=== PATIENT | male | born 1985 | race African-American/Black ===

== ENCOUNTER 2018-02-01 12:29 | Emergency (ER) | payer MEDICARE, MEDICAID ==
[2018-02-01] MEDS ORDERED: TETRACAINE HCL 0.5% OPH SOLN 2 ML OU ONE (13:10)
--- NOTE | 2018-02-01 13:11 | ER Document Report ---
ED Medical Screen (RME) - General Chief Complaint: Eye Problem Stated Complaint: EYE PAIN, BLURRED VISION, DIZZY Time Seen by Provider: 02/01/18 13:09 TRAVEL OUTSIDE OF THE [place] IN LAST 30 DAYS: No - HPI Notes: 02/01/18 13:10 Bilateral red eyes and pain - Related Data Allergies/Adverse Reactions: doxycycline Allergy (Verified 08/13/16 09:20) rash Sulfa (Sulfonamide Antibiotics) Allergy (Verified 02/01/18 12:30) Past Medical History - Social History Chew tobacco use (# tins/day): No Drug Abuse: None Pulmonary Medical History: Reports: Hx Asthma Renal/ Medical History: Denies: Hx Peritoneal Dialysis - Immunizations Hx Diphtheria, Pertussis, Tetanus Vaccination: Yes Review of Systems - Review of Systems EENT: Eye pain, Blurred vision Physical Exam - Vital signs Vitals: Temp Pulse Resp BP Pulse Ox 98.9 F 78 20 122/67 99 02/01/18 12:37 02/01/18 12:37 02/01/18 12:37 02/01/18 12:37 02/01/18 12:37 - General General appearance: Appears well In distress: None Course - Vital Signs Vital signs: Temp Pulse Resp BP Pulse Ox 98.9 F 78 20 122/67 99 02/01/18 12:37 02/01/18 12:37 02/01/18 12:37 02/01/18 12:37 02/01/18 12:37 Doctor's Discharge - Discharge Referrals: TULIO JACOME MD [Primary Care Provider] - Follow up as needed
[2018-02-01] MEDS ORDERED: CYCLOPENTOLATE HCL 2% OPH SOLN 2 ML OU ONE (14:45)
--- NOTE | 2018-02-01 15:16 | RADIOLOGY REPORT (SQ) ---
EXAM DESCRIPTION: CT HEAD WITHOUT COMPLETED DATE/TIME: 02/01/2018 2:59 pm REASON FOR STUDY: bilateral eye pain, rodriguez, blurred vision, photosyns COMPARISON: None. TECHNIQUE: Axial images acquired through the brain without intravenous contrast. Images reviewed wi th bone, brain and subdural windows. Additional sagittal and coronal reconstructions were generated. Images stored on PACS. All CT scanners at this facility use dose modulation, iterative reconstruction, and/or weight based d osing when appropriate to reduce radiation dose to as low as reasonably achievable (ALARA). [facility]: Dose Right [facility]: CareDose [facility]: Dose Right [facility]: Teradose 4D [facility]: Smart Ziptr RADIATION DOSE: CT Rad equipment meets quality standard of care and radiation dose reduction techniq ues were employed. CTDIvol: 53.2 mGy. DLP: 1070 mGy-cm. mGy. LIMITATIONS: None. FINDINGS: VENTRICLES: Normal size and contour. CEREBRUM: No masses. No hemorrhage. No midline shift. No evidence for acute infarction. Normal gra y/white matter differentiation. No areas of low density in the white matter. CEREBELLUM: No masses. No hemorrhage. No alteration of density. No evidence for acute infarction. EXTRAAXIAL SPACES: No fluid collections. No masses. ORBITS AND GLOBE: No intra- or extraconal masses. Normal contour of globe without masses. CALVARIUM: No fracture. PARANASAL SINUSES: No fluid or mucosal thickening. SOFT TISSUES: No mass or hematoma. OTHER: No other significant finding. IMPRESSION: NORMAL BRAIN CT WITHOUT CONTRAST. EVIDENCE OF ACUTE STROKE: NO. COMMENT: Quality ID # [id number]: Final reports with documentation of one or more dose reduction techniques (e.g., Automated exposure control, adjustment of the mA and/or kV according to patient size, use of iterative reconstruction technique) TECHNICAL DOCUMENTATION: JOB ID: [id number] [employer]- All Rights Reserved Reading location - IP/workstation name: [email or web address]
--- NOTE | 2018-02-01 15:36 | ER Document Report ---
ED Eye Complaint - General Chief Complaint: Eye Problem Stated Complaint: EYE PAIN, BLURRED VISION, DIZZY Time Seen by Provider: 02/01/18 13:09 Mode of Arrival: Ambulatory Information source: Patient Notes: Patient is a 32-year-old male who presents to the ER today for bilateral eye pain, redness 1 day. Patient states that he started to have some irritation to the eyes last night and then woke up with them very red today, watering, admits to pain behind the eye "like a pressure." He admits to blurred vision bilaterally. Patient does not wear contacts or glasses. Patient denies getting anything in his eyes that he knows of. He admits to photosensitivity. TRAVEL OUTSIDE OF THE [place] IN LAST 30 DAYS: No - Related Data Allergies/Adverse Reactions: doxycycline Allergy (Verified 08/13/16 09:20) rash Sulfa (Sulfonamide Antibiotics) Allergy (Verified 02/01/18 12:30) Past Medical History - General Information source: Patient - Social History Smoking Status: Never Smoker Chew tobacco use (# tins/day): No Drug Abuse: None Family History: Reviewed & Not Pertinent Patient has suicidal ideation: No Patient has homicidal ideation: No Pulmonary Medical History: Reports: Hx Asthma Renal/ Medical History: Denies: Hx Peritoneal Dialysis - Immunizations Hx Diphtheria, Pertussis, Tetanus Vaccination: Yes Review of Systems - Review of Systems Constitutional: No symptoms reported EENT: See HPI Cardiovascular: No symptoms reported Respiratory: No symptoms reported Gastrointestinal: No symptoms reported Genitourinary: No symptoms reported Male Genitourinary: No symptoms reported Musculoskeletal: No symptoms reported Skin: No symptoms reported Hematologic/Lymphatic: No symptoms reported Neurological/Psychological: No symptoms reported Physical Exam - Vital signs Vitals: Temp Pulse Resp BP Pulse Ox 98.9 F 78 20 122/67 99 02/01/18 12:37 02/01/18 12:37 02/01/18 12:37 02/01/18 12:37 02/01/18 12:37 - Notes Notes: PHYSICAL EXAMINATION: GENERAL: Well-appearing and in no acute distress. HEAD: Atraumatic, normocephalic. EYES: Pupils equal round and reactive to light, extraocular movements intact and nontender, sclera erythematous, watering, conjunctiva watering, eyes tender to palpation over eyelids ENT: ear canals without erythema or foreign body, TMs pearly fry with good bony landmarks, nares patent, oropharynx clear without exudates. Moist mucous membranes. NECK: Normal range of motion, supple without lymphadenopathy LUNGS: CTAB and equal. No wheezes rales or rhonchi. HEART: Regular rate and rhythm without murmurs EXTREMITIES: Normal range of motion, no pitting edema. No cyanosis. NEUROLOGICAL: Cranial nerves grossly intact. Normal sensory/motor exams. Good and equal strength bilaterally, Kernig and Brudzinski's signs negative, Romberg' s test normal, normal heel to oconnor testing PSYCH: Normal mood, normal affect. SKIN: Warm, Dry, normal turgor, no rashes or lesions noted - HEENT Visual acuity- Right eye: 20/20 Visual acuity- Left eye: 20/20 Visual acuity- Both eyes: 20/20 Corrective lenses worn: No Course - Re-evaluation Re-evalutation: 02/01/18 18:52 CT of the head negative for any acute pathology, ultrasound performed at the bedside by myself shows intact retinas bilaterally. Fluorescein stain reveals no increased uptake revealing any abrasion, foreign body or ulceration, pressures in the eyes were 16, 14 in the left and 14, 12 in the right. Will treat patient for uveitis at this time. Will place patient on Viroptic and prednisone, having him follow-up with the water commissioner that I have given him on this paperwork. Patient feels much better after cyclopentolate to dilate pupils. - Vital Signs Vital signs: Temp Pulse Resp BP Pulse Ox 98.4 F 71 16 144/80 H 99 02/01/18 16:23 02/01/18 16:23 02/01/18 16:23 02/01/18 16:23 02/01/18 16:23 Discharge - Discharge Clinical Impression: Uveitis Condition: Stable Disposition: HOME, SELF-CARE Instructions: Eyedrop Use ([facility]) Additional Instructions: Return immediately for any new or worsening symptoms. Follow up with water commissioner, call tomorrow to make followup appointment. Prescriptions: Prednisolone Acetate 2 drop OU QID #1 bottle Trifluridine [Viroptic 1% Oph Soln 7.5 Ml Bottle] 1 drop OU Q2 #1 bottle Referrals: TULIO JACOME MD [Primary Care Provider] - Follow up as needed KAREN VAUGHN DO [ACTIVE STAFF] - Follow up as needed
[2018-02-01 16:26] VITALS: BP 144/80
== END 2018-02-01 16:26 | disposition home or self-care (01) ==
LOC: ER 12:29
DX: H57.13 Ocular pain, bilateral (principal); R42 Dizziness and giddiness; H20.9 Unspecified iridocyclitis; Z88.2 Allergy status to sulfonamides
CPT/HCPCS: 99284; 70450; J3490

== ENCOUNTER → 2018-05-03 | Outpatient (CLI) | payer MEDICARE, MEDICAID ==
[2018-05-03 12:53] LABS: BLOOD UREA NITROGEN 10 mg/dL (7-20); CALCIUM 9.7 mg/dL (8.4-10.2); CARBON DIOXIDE 31 mmol/L (22-30); CHLORIDE 101 mmol/L (98-107); GLUCOSE 101 mg/dL (75-110); POTASSIUM 4.6 mmol/L (3.6-5.0)
[2018-05-03 12:54] LABS: ALANINE AMINOTRANSFERASE 33 U/L (21-72); ALBUMIN 4.3 g/dL (3.5-5.0); ALKALINE PHOSPHATASE 87 U/L (38-126); ANION GAP 9 (5-19); ASPARTATE AMINO TRANSFERASE 24 U/L (17-59); BILIRUBIN,DIRECT 0.3 mg/dL (0.0-0.4); BILIRUBIN,TOTAL 0.8 mg/dL (0.2-1.3); DIRECT LDL 117 mg/dL (<100); SODIUM 141.1 mmol/L (137-145); TOTAL PROTEIN 8.5 g/dL (6.3-8.2); TRIGLYCERIDES 107 mg/dL (<150); VLDL CHOLESTEROL 21.4 mg/dL (10-31)
[2018-05-03 13:19] LABS: HEMATOCRIT 42.5 % (37.9-51.0); HEMOGLOBIN 14.1 g/dL (13.5-17.0); LYMPHOCYTES % (AUTO) 19.7 % (13-45); MEAN CORPUSCULAR HGB CONC 33.2 g/dL (32.0-36.0); MEAN CORPUSCULAR VOLUME 81 fl (80-97); PLATELET COUNT 379 10^3/uL (150-450); RED BLOOD COUNT 5.22 10^6/uL (4.35-5.55); RED CELL DISTRIBUTION WIDTH 14.8 % (11.5-14.0); SEGMENTED NEUTROPHILS % (AUTO) 60.5 % (42-78); WHITE BLOOD COUNT 6.2 10^3/uL (4.0-10.5)
[2018-05-03 13:20] LABS: ABSOLUTE EOSINOPHILS # (AUTO) 0.5 10^3/uL (0.0-0.6); ABSOLUTE LYMPHOCYTES (AUTO) 1.2 10^3/uL (0.5-4.7); ABSOLUTE MONOCYTES (AUTO) 0.7 10^3/uL (0.1-1.4); ABSOLUTE NEUT (AUTO) 3.8 10^3/uL (1.7-8.2); BASOPHILS % (AUTO) 0.4 % (0-2); EOSINOPHILS % (AUTO) 7.4 % (0-6); TOTAL CELLS COUNTED % (AUTO) 100 %
== END ==
LOC: FU 11:53
PROVIDERS: ATTEND Internal Medicine
DX: I10 Essential (primary) hypertension (principal); E11.9 Type 2 diabetes mellitus without complications; E78.5 Hyperlipidemia, unspecified
CPT/HCPCS: 80053; 80061; 83036; 84443; 85025

== ENCOUNTER → 2018-07-28 | Outpatient (CLI) | payer MEDICARE, MEDICAID ==
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
[2018-07-30 17:30] LABS: TOXOPLASMA GONDII IGG AB <3.0 IU/mL (0.0-7.1)
== END ==
LOC: LAB 16:29
PROVIDERS: ATTEND Ophthalmology
DX: H04.123 Dry eye syndrome of bilateral lacrimal glands (principal); H44.113 Panuveitis, bilateral; H35.353 Cystoid macular degeneration, bilateral
CPT/HCPCS: 36415; 71046; 82164; 86592; 86777

== ENCOUNTER → 2019-01-10 | Outpatient (CLI) | payer MEDICARE, MEDICAID ==
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
== END ==
LOC: OD 14:55
PROVIDERS: ATTEND Internal Medicine
DX: M54.40 Lumbago with sciatica, unspecified side (principal)
CPT/HCPCS: 72110

== ENCOUNTER 2019-02-13 16:04 | Emergency (ER) | payer OTHER, MEDICARE, MEDICAID ==
[2019-02-13] MEDS ORDERED: IBUPROFEN 800 MG TABLET PO ONE (18:03)
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
[2019-02-13 19:08] VITALS: BP 152/75
== END 2019-02-13 19:21 | disposition home or self-care (01) ==
LOC: ER 16:04
DX: S42.142A Displaced fracture of glenoid cavity of scapula, left shoulder, initial encounter for closed fracture (principal); S42.152A Displaced fracture of neck of scapula, left shoulder, initial encounter for closed fracture; M25.512 Pain in left shoulder; V43.52XA Car driver injured in collision with other type car in traffic accident, initial encounter; J45.909 Unspecified asthma, uncomplicated; Z87.891 Personal history of nicotine dependence
CPT/HCPCS: 99283; 73030; L3650

== ENCOUNTER 2019-06-17 19:46 | Emergency (ER) | payer MEDICARE, MEDICAID ==
--- NOTE | 2019-06-17 20:05 | ER Document Report ---
ED Medical Screen (RME) - General Stated Complaint: EYE PAIN Time Seen by Provider: 06/17/19 20:00 Primary Care Provider: NANCY WILLIAMSON MD [Primary Care Provider] - Follow up as needed Information source: Patient Notes: Patient presents complaining of blurred vision that has been off and on for the past 3 days that became persistent today. Patient states he had a headache earlier today that is now resolved. Patient states he has had blurred vision and headache in the past and was told that he had a mini stroke. Patient denies any nausea or vomiting. Patient also complains that his left hand was very tense earlier today and that he had difficulty extending his fingers. Patient states that his hand is functioning normally now. I have greeted and performed a rapid initial assessment of this patient. A comprehensive ED assessment and evaluation of the patient, analysis of test results and completion of the medical decision making process will be conducted by additional ED providers. TRAVEL OUTSIDE OF THE [place] IN LAST 30 DAYS: No - Related Data Allergies/Adverse Reactions: doxycycline Allergy (Verified 08/13/16 09:20) rash Sulfa (Sulfonamide Antibiotics) Allergy (Verified 02/01/18 12:30) Past Medical History - Past Medical History Cardiac Medical History: Denies: Hx Hypertension Pulmonary Medical History: Reports: Hx Asthma Endocrine Medical History: Denies: Hx Diabetes Mellitus Type 2 Renal/ Medical History: Denies: Hx Peritoneal Dialysis - Immunizations Hx Diphtheria, Pertussis, Tetanus Vaccination: Yes Physical Exam - Vital signs Vitals: Temp Pulse Resp BP Pulse Ox 97.9 F 84 18 165/80 H 97 06/17/19 19:51 06/17/19 19:51 06/17/19 19:51 06/17/19 19:51 06/17/19 19:51 - Neurological Cognition: Normal Orientation: AAOx4 [place] Coma Scale Eye Opening: Spontaneous [place] Coma Scale Verbal: Oriented [place] Coma Scale Motor: Obeys Commands Adela Coma Scale Total: 15 Course - Vital Signs Vital signs: Temp Pulse Resp BP Pulse Ox 97.9 F 84 18 165/80 H 97 06/17/19 19:51 06/17/19 19:51 06/17/19 19:51 06/17/19 19:51 06/17/19 19:51 Doctor's Discharge - Discharge Referrals: NANCY WILLIAMSON MD [Primary Care Provider] - Follow up as needed
[2019-06-17 20:32] LABS: ABSOLUTE BASOPHILS # (AUTO) 0.1 10^3/uL (0.0-0.2); ABSOLUTE EOSINOPHILS # (AUTO) 0.5 10^3/uL (0.0-0.6); ABSOLUTE NEUT (AUTO) 3.8 10^3/uL (1.7-8.2); EOSINOPHILS % (AUTO) 7.7 % (0-6); HEMATOCRIT 43.4 % (37.9-51.0); HEMOGLOBIN 14.4 g/dL (13.5-17.0); LYMPHOCYTES % (AUTO) 15.4 % (13-45); MEAN CORPUSCULAR HEMOGLOBIN 27.4 pg (27.0-33.4); MEAN CORPUSCULAR HGB CONC 33.2 g/dL (32.0-36.0); MEAN CORPUSCULAR VOLUME 83 fl (80-97); MONOCYTES % (AUTO) 15.3 % (3-13); PLATELET COUNT 364 10^3/uL (150-450); RED BLOOD COUNT 5.24 10^6/uL (4.35-5.55); SEGMENTED NEUTROPHILS % (AUTO) 60.6 % (42-78); TOTAL CELLS COUNTED % (AUTO) 100 %; WHITE BLOOD COUNT 6.2 10^3/uL (4.0-10.5)
--- NOTE | 2019-06-17 20:38 | ER Document Report ---
ED General - General Chief Complaint: Blurred Vision Stated Complaint: EYE PAIN Time Seen by Provider: 06/17/19 20:00 Primary Care Provider: NANCY WILLIAMSON MD [Primary Care Provider] - Follow up as needed Notes: Patient is a 33-year-old male that comes to the emergency department for chief complaint of blurry vision on and off for the past 3 days. He also stated he had a headache earlier but this resolved. He states he had trouble mainly with his left eye today but his right eye was bothering him yesterday. When asked he admits he has not slept well in the past 4 days. He denies any focal numbness or weakness, denies visual loss, denies nausea or vomiting. He denies visual correction including contacts or glasses. When I evaluated patient patient is currently crying persistently, when I asked what was wrong he states he "misses his girl". He states he has been having a lot of trouble at home and having difficulty sleeping as a result. He denies SI or HI, denies feeling unsafe. He denies daily medications or past medical history. TRAVEL OUTSIDE OF THE [place] IN LAST 30 DAYS: No - Related Data Allergies/Adverse Reactions: doxycycline Allergy (Verified 08/13/16 09:20) rash Sulfa (Sulfonamide Antibiotics) Allergy (Verified 02/01/18 12:30) Home Medications: denies Past Medical History - General Information source: Patient - Social History Smoking Status: Never Smoker Chew tobacco use (# tins/day): No Frequency of alcohol use: Rare Drug Abuse: None Family History: Reviewed & Not Pertinent Patient has suicidal ideation: No Patient has homicidal ideation: No - Past Medical History Cardiac Medical History: Denies: Hx Hypertension Pulmonary Medical History: Reports: Hx Asthma Endocrine Medical History: Denies: Hx Diabetes Mellitus Type 2 Renal/ Medical History: Denies: Hx Peritoneal Dialysis - Immunizations Hx Diphtheria, Pertussis, Tetanus Vaccination: Yes Review of Systems - Review of Systems Constitutional: No symptoms reported EENT: See HPI Cardiovascular: No symptoms reported Respiratory: No symptoms reported Gastrointestinal: No symptoms reported Genitourinary: No symptoms reported Male Genitourinary: No symptoms reported Musculoskeletal: No symptoms reported Skin: No symptoms reported Hematologic/Lymphatic: No symptoms reported Neurological/Psychological: See HPI Physical Exam - Vital signs Vitals: Temp Pulse Resp BP Pulse Ox 97.9 F 84 18 165/80 H 97 06/17/19 19:51 06/17/19 19:51 06/17/19 19:51 06/17/19 19:51 06/17/19 19:51 - Notes Notes: GENERAL: Alert. No acute distress. HEAD: Normocephalic, atraumatic. EYES: Pupils equal, round, and reactive to light. Extraocular movements intact. Slightly irritated and injected bilaterally. No discharge. No superficial foreign body, no fluorescein uptake, negative Lazaro sign. Pressures of 15 with Orestes-Pen check. ENT: Oral mucosa moist, tongue midline. Oropharynx unremarkable. Airway patent. Nares patent, no nasal septal hematoma, TM's intact. NECK: Full range of motion. Supple. Trachea midline. LUNGS: Clear to auscultation bilaterally, no wheezes, rales, or rhonchi. No respiratory distress. HEART: Regular rate and rhythm. No murmur ABDOMEN: Soft, non-tender. Non-distended. EXTREMITIES: Moves all 4 extremities spontaneously. No edema, normal radial and dorsalis pedis pulses bilaterally. No cyanosis. BACK: no cervical, thoracic, lumbar midline tenderness. No saddle anesthesia, normal distal neurovascular exam. Moves all extremities in full range of motion. NEUROLOGICAL: Alert and oriented x3. Normal speech. Cranial nerves II through XII grossly intact. PSYCH: Patient slightly forlorn and very tearful when I initially evaluated him SKIN: Warm, dry, normal turgor. No rashes or lesions noted. - HEENT Visual acuity- Right eye: 20/30 Visual acuity- Left eye: 20/40 Visual acuity- Both eyes: 20/25 Corrective lenses worn: No Course - Re-evaluation Re-evalutation: Intraocular pressures are normal, fluorescein exam is normal, no visual deficits, normal EOMs, patient has injected conjunctiva but normal eyelids. Patient was crying when I entered the room. Appears to have simple eyestrain, does not even appear to be conjunctivitis. I did review the CAT scan of the head from triage but this was normal. I discussed with patient. Patient talked for a while about his relationship, he states he does feel better afterwards, he did stop crying and became more interactive. He states he is ready to go home, he just needs to sleep. He was provided with Vistaril to do this after discussion of different options. He denies SI or HI. I discussed return precautions at length, patient states appreciation and agreement. Stable at time of discharge. - Vital Signs Vital signs: Temp Pulse Resp BP Pulse Ox 98.4 F 69 16 131/69 H 99 06/17/19 21:52 06/17/19 21:52 06/17/19 21:52 06/17/19 21:52 06/17/19 21:52 - Laboratory Result Diagrams: 06/17/19 20:18 06/17/19 20:18 Laboratory results interpreted by me: 06/17/19 06/17/19 20:18 20:18 RDW 15.0 H [place] % (Auto) 15.3 H Eos % (Auto) 7.7 H Creatinine 1.26 H Total Protein 8.3 H Discharge - Discharge Clinical Impression: Irritation of eye, Stress response Insomnia Qualifiers: Insomnia type: unspecified Qualified Code(s): G47.00 - Insomnia, unspecified Condition: Stable Disposition: HOME, SELF-CARE Additional Instructions: The imaging of the head is normal, your eye exam is very reassuring, this appears to be simple eyestrain. This should resolve with good rest. Recommend you use the Vistaril as prescribed if needed especially to help you sleep at night. Follow-up with primary care routinely to get your blood pressure and general labs rechecked and followed. See referral. Come back for any concerning symptoms including lost vision, pain, discolored drainage, or swelling of the eye, severe headache, or any other concerning or worsening symptoms. Prescriptions: Hydroxyzine Pamoate [Vistaril 25 mg Capsule] 1 - 2 cap PO Q6 PRN #30 capsule PRN Reason: Referrals: NANCY WILLIAMSON MD [Primary Care Provider] - Follow up as needed
[2019-06-17 20:55] LABS: ALBUMIN 4.3 g/dL (3.5-5.0); ALKALINE PHOSPHATASE 117 U/L (38-126); ANION GAP 11 (5-19); ASPARTATE AMINO TRANSFERASE 22 U/L (17-59); BILIRUBIN,DIRECT 0.1 mg/dL (0.0-0.4); BILIRUBIN,TOTAL 0.4 mg/dL (0.2-1.3); BLOOD UREA NITROGEN 16 mg/dL (7-20); CALCIUM 9.4 mg/dL (8.4-10.2); CARBON DIOXIDE 28 mmol/L (22-30); CHLORIDE 102 mmol/L (98-107); GLUCOSE 92 mg/dL (75-110); POTASSIUM 4.3 mmol/L (3.6-5.0); TOTAL PROTEIN 8.3 g/dL (6.3-8.2)
--- NOTE | 2019-06-17 21:00 | RADIOLOGY REPORT (SQ) ---
EXAM DESCRIPTION: CT head without contrast CLINICAL HISTORY: 33 years Male, [place], blurred vision COMPARISON: CT head 02/01/2018 TECHNIQUE: Axial images of the head were performed without the use of intravenous contrast, with sagittal and coronal reformatted images. This exam was performed according to our departmental dose-optimization program which includes use of Automated Exposure Control, adjustment of the mA and/or kV according to patient size and/or use of iterative reconstruction technique. FINDINGS: No evidence of acute hemorrhage or infarct. No evidence of mass or hydrocephalus. Awad/white matter differentiation is preserved. The visualized paranasal sinuses are clear. IMPRESSION: Normal head CT.
[2019-06-17] MEDS ORDERED: TETRACAINE HCL 0.5% OPH SOLN 4 ML ONE (21:13)
[2019-06-17] MEDS ORDERED: TETRACAINE HCL 0.5% OPH SOLN 4 ML OU ONE (21:21)
[2019-06-17] MEDS ORDERED: HYDROXYZINE PAMOATE 25 MG CAPSULE (4 CAP/ER DISP) PO PRN (21:38)
[2019-06-17 21:53] VITALS: BP 131/69
== END 2019-06-17 21:53 | disposition home or self-care (01) ==
LOC: ER 19:46
DX: H57.11 Ocular pain, right eye (principal); G47.00 Insomnia, unspecified; F43.9 Reaction to severe stress, unspecified; H53.8 Other visual disturbances; R51 Headache; J45.909 Unspecified asthma, uncomplicated; E11.9 Type 2 diabetes mellitus without complications
CPT/HCPCS: 99284; 36415; 82962; 85025; 80053; 70450; A9270; J3490